=== PATIENT | male | born 1960 | race American Indian/Alaskan Native ===

== ENCOUNTER 2021-03-09 06:14 | Inpatient (IN) | payer SELFPAY ==
[2021-03-09] MEDS ORDERED: SODIUM CHLORIDE 0.9% 1000 ML 1,000 ML IV ONE (06:26)
--- NOTE | 2021-03-09 06:31 | Emergency Department Report ---
ED Shortness of Breath HPI - General Chief Complaint: Dyspnea/Respdistress Stated Complaint: SOB Time Seen by Provider: 03/09/21 06:25 Source: EMS Mode of arrival: Stretcher Limitations: No Limitations - History of Present Illness Initial Comments: Patient presents by EMS secondary to shortness of breath. Patient was traveling. He started having shortness of breath yesterday while in [place]. He was flying from [facility] to [place] and then subsequently here. He decided to come on here and boarded the plane in [place]. He came here and was having trouble breathing. He states that he is having trouble breathing because he did not have an informed close. He states that that this started in [place]. He just cannot catch his breath. Has no chest pain. There is no cough or fever. Has had no vomiting or diarrhea. EMS placed him in an N95 mask. Patient states he is never had trouble breathing before. He has had no pain or swelling in the legs. Again, he has no chest pain. - Related Data Allergies Allergy/AdvReac Type Severity Reaction Status Date / Time No Known Allergies Allergy Unverified 03/09/21 07:34 ED Review of Systems ROS: Stated complaint: SOB Other details as noted in HPI Comment: All other systems reviewed and negative Constitutional: denies: fever Eyes: denies: vision change ENT: denies: throat pain Respiratory: see HPI. denies: cough Cardiovascular: denies: chest pain Endocrine: denies: unexplained weight loss Gastrointestinal: denies: abdominal pain Genitourinary: denies: dysuria Musculoskeletal: denies: back pain Skin: denies: rash Neurological: denies: headache Hematological/Lymphatic: denies: easy bruising ED Past Medical Hx - Past Medical History Previous Medical History?: No - Family History Family history: no significant - Social History Smoking Status: Never Smoker ED Physical Exam - General Limitations: No Limitations, Other (Pulse ox noted and normal) General appearance: alert, in no apparent distress - Head Head exam: Present: atraumatic, normocephalic, normal inspection - Eye Eye exam: Present: normal appearance, EOMI. Absent: scleral icterus - ENT ENT exam: Present: mucous membranes dry, normal external ear exam - Neck Neck exam: Present: normal inspection. Absent: meningismus - Respiratory Respiratory exam: Present: normal lung sounds bilaterally. Absent: respiratory distress - Cardiovascular Cardiovascular Exam: Present: normal rhythm, tachycardia - GI/Abdominal GI/Abdominal exam: Present: soft. Absent: distended, tenderness - Extremities Exam Extremities exam: Present: normal capillary refill. Absent: pedal edema, calf tenderness - Back Exam Back exam: Absent: CVA tenderness (R), CVA tenderness (L) - Neurological Exam Neurological exam: Present: alert, oriented X3, CN II-XII intact, normal gait. Absent: motor sensory deficit - Psychiatric Psychiatric exam: Present: normal affect, normal mood - Skin Skin exam: Present: warm, dry ED Course Vital Signs 03/09/21 03/09/21 03/09/21 06:42 06:43 07:30 Temperature 99.7 F H 102.1 F H Pulse Rate 112 H 110 H Respiratory 29 H 15 Rate Blood Pressure 137/97 150/91 [Left] O2 Sat by Pulse 96 96 97 Oximetry - Reevaluation(s) Reevaluation #1: 03/09/21 06:31 IV and labs ordered. Old records noted. Reevaluation #2: 03/09/21 07:13 EKG is noted. There is no old EKG for comparison. Reevaluation #3: 03/09/21 08:42 CT was noted. Case was discussed with the hospitalist who agrees to admit. It was at this time that the temperature was noted. Coronavirus swab will be ordered. ED Medical Decision Making - Lab Data Result diagrams: 03/09/21 06:49 03/09/21 06:49 Rhythm strip: Sinus tachycardia without ectopy. Monitor observe 10 seconds. - EKG Data -: EKG Interpreted by Me - EKG Data When compared to previous EKG there are: previous EKG unavailable 03/09/21 07:15 0652-EKG shows sinus tachycardia 107. QRS is normal at 79. QT corrected is normal at 1-29. Patient has T wave inversions in 1 and aVL. There is T wave flattening in 3 and aVF. Patient has biphasic T waves in V5 and V6. These are concerning for ischemia. There is no old EKG for comparison. There is no ST elevation to suggest STEMI. - Radiology Data Radiology results: report reviewed - Medical Decision Making Patient presents with shortness of breath in the setting of international travel. There was no CT evidence of pneumonia or pneumothorax. He did not have CT evidence of aortic dissection or pulmonary embolism. He does have an abnorm al EKG. Patient now has a fever. Coronavirus swab was sent. Whether this is an angina equivalent is not known. We do not have an old EKG for comparison. Regardless, we will proceed with admission and observation. Critical Care Time: No Critical care attestation.: If time is entered above; I have spent that time in minutes in the direct care o f this critically ill patient, excluding procedure time. ED Disposition Clinical Impression: Shortness of breath, Abnormal EKG Disposition: ADMITTED INPATIENT Is pt being admited?: Yes Condition: Stable
[2021-03-09 07:12] LABS: Hematocrit 42.5 % (35.5-45.6); Hemoglobin 13.3 gm/dl (11.8-15.2); Mean Corpuscular HGB Conc 31 % (32-34); Mean Corpuscular Volume 80 fl (84-94); Platelet Count 142 K/mm3 (140-440); Red Blood Count 5.32 M/mm3 (3.65-5.03); Red Cell Distribution Width 15.2 % (13.2-15.2)
[2021-03-09 07:34] LABS: BUN/Creatinine Ratio 15; Blood Urea Nitrogen 16 mg/dL (9-20); Calcium 8.8 mg/dL (8.4-10.2); Hemolysis Index 4
[2021-03-09] MEDS ORDERED: ACETAMINOPHEN 500 MG TAB PO ONE (07:34)
--- NOTE | 2021-03-09 08:26 | Cat Scan Report ---
CTA CHEST WITH CONTRAST INDICATION / CLINICAL INFORMATION: dyspnea w/travel, r/o pe. TECHNIQUE: Axial CT images were obtained through the chest after injection of 85 cc Omnipaque 350 IV contrast. 3 plane MIP and/or 3D reconstructions were produced. All CT scans at this location are perf ormed using CT dose reduction for ALARA by means of automated exposure control. COMPARISON: None available. FINDINGS: PULMONARY ARTERIES: No pulmonary emboli. The main pulmonary artery is mildly dilated at 3.3 cm. THORACIC AORTA: No significant abnormality. HEART: No significant abnormality. CORONARY ARTERY CALCIFICATION: None. MEDIASTINUM / TONJA: No significant abnormality. PLEURA: No pleural effusion. No pneumothorax. LUNGS: No acute air space or interstitial disease. ADDITIONAL FINDINGS: None. UPPER ABDOMEN: Small hiatal hernia. There are multiple small bilateral adrenal nodules, largest measu ring approximately 1.8 cm in the left adrenal gland with Hounsfield unit of 01. Mild hepatic steatosi s. SKELETAL STRUCTURES: No significant osseous abnormality. IMPRESSION: 1. No CT evidence for pulmonary embolism. 2. The main pulmonary artery is mildly dilated at 3.3 cm, which can be seen with pulmonary artery hyp ertension. 2. Bilateral small adrenal nodules which favor adrenal adenomas. 4. Additional incidental findings as above. Signer Name: Dante Gramajo MD Signed: 03/09/2021 8:21 AM Workstation Name: [id number]
--- NOTE | 2021-03-09 09:27 | History and Physical Report ---
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 He denies any past medical history but does not see doctors. He has been generally healthy. He visited his family in [facility], spent 2 weeks and flew back to [place] on 03/07/2021 changing a flight in [place]. Patient started feeling very cold while he was at [place] report and he continued to feel unwell after landing in [place] mainly feeling cold, malaise and anorexia. Reportedly told EMS as well as a ER physician that he was having difficulty breathing however when I questioned this, he denied it. No vomiting or diarrhea. No he adache, sore throat, cough, chest pain, abdominal pain or joint aches. No lightheadedness or syncopal episodes. No skin rashes. No hematochezia or melena or hematuria. In ED, patient noted to be spiking fever, max 103.1, the only abnormal finding in the work-up. BP, respirations and heart rate stable. WBC 6.2, platelets 142, D-dimer 855, ABG 7.43, 37, 74 on room air. CMP unremarkable. Proc alcitonin 2.9, LDH 229, CRP 9.3. UA unremarkable. PCR test for Covid negative. CTA showed no pulmonary embolus or pneumonia. Small adrenal nodules consistent with adenoma. EKG showed sinus tach, 107, T wave inversions in 1 and aVL. T wave flattening in 3 and aVF and biphasic T waves in V5 and V6. Troponin normal. Patient received 2 doses of COVID-19 vaccine about a month ago or so. Patient denies feeling ill or exposure to sick patients while in [facility]. Patient is being admitted for further evaluation after febrile illness. Patient remains on room air without respiratory distress. Review of systems: 13 systems reviewed and the pertinent findings are mentioned in HPI. Past medical history: Patient denies any Social history: Works as a retail security professional. Lives with a person who is not ill. Denies using tobacco products or illicit drugs. Rarely drinks alcohol. Family history: Noncontributory Current meds: None Medications and Allergies Allergies Allergy/AdvReac Type Severity Reaction Status Date / Time No Known Allergies Allergy Unverified 03/09/21 07:34 Exam - Constitutional Vitals: Temp Pulse Resp BP Pulse Ox 103.1 F H 112 H 23 143/86 97 03/09/21 08:43 03/09/21 08:43 03/09/21 08:43 03/09/21 08:43 03/09/21 08:43 General appearance: Present: no acute distress, well-nourished, other (Alert and oriented) - EENT Eyes: Present: PERRL, EOM intact. Absent: scleral icterus ENT: clear oral mucosa, no oropharyngeal erythema - Neck Neck: Present: supple - Respiratory Respiratory effort: normal Respiratory: bilateral: CTA - Cardiovascular Rhythm: regular - Extremities Extremities: No edema - Abdominal General gastrointestinal: Present: soft, non-tender, non-distended, normal bowel sounds Male genitourinary: Present: deferred - Integumentary Integumentary: Absent: jaundice, rash - Musculoskeletal Musculoskeletal: strength equal bilaterally - Psychiatric Psychiatric: appropriate mood/affect - Neurologic Neurologic: no focal deficits, moves all extremities HEART Score - HEART Score Troponin: Troponin T < 0.010 ng/mL (0.00-0.029) 03/09/21 06:49 Results - Labs CBC & Chem 7: 03/09/21 06:49 03/09/21 06:49 Labs: Laboratory Last Values WBC 6.2 K/mm3 (4.5-11.0) 03/09/21 06:49 RBC 5.32 M/mm3 (3.65-5.03) H 03/09/21 06:49 Hgb 13.3 gm/dl (11.8-15.2) 03/09/21 06:49 Hct 42.5 % (35.5-45.6) 03/09/21 06:49 MCV 80 fl (84-94) L 03/09/21 06:49 MCH 25 pg (28-32) L 03/09/21 06:49 MCHC 31 % (32-34) L 03/09/21 06:49 RDW 15.2 % (13.2-15.2) 03/09/21 06:49 Plt Count 142 K/mm3 (140-440) 03/09/21 06:49 Sodium 139 mmol/L (137-145) 03/09/21 06:49 Potassium 3.6 mmol/L (3.6-5.0) 03/09/21 06:49 Chloride 100.2 mmol/L (98-107) 03/09/21 06:49 Carbon Dioxide 23 mmol/L (22-30) 03/09/21 06:49 Anion Gap 19 mmol/L 03/09/21 06:49 BUN 16 mg/dL (9-20) 03/09/21 06:49 Creatinine 1.1 mg/dL (0.8-1.3) 03/09/21 06:49 Estimated GFR > 60 ml/min 03/09/21 06:49 BUN/Creatinine Ratio 15 % 03/09/21 06:49 Glucose 145 mg/dL (75-100) H 03/09/21 06:49 Calcium 8.8 mg/dL (8.4-10.2) 03/09/21 06:49 Troponin T < 0.010 ng/mL (0.00-0.029) 03/09/21 06:49 Assessment and Plan Assessment and plan: Assessment: Acute febrile illness with malaise and anorexia since 2 days, T-max 103.1, likely viral etiology returning after a 2-week trip to [facility] received COVID-19 vaccine x2 doses about a month ago PCR test negative for COVID-19 in ED WBC 6.2 and platelets 192, UA unremarkable D-dimer 850 high, CTA negative for PE and pneumonia. Procalcitonin 2.9, LDH 229, CRP 9.3 chemistry and LFTs unremarkable no respiratory distress, remains on room air ABG 7.43, 37, 74, on room air Incidental small adrenal nodules Abnormal T wave wave changes on EKG, no chest pain, troponin normal Denies past medical history, generally healthy but does not see doctors Plan: Blood cultures performed will hold antibiotic therapy for now ID consulted supportive measures for now DVT prophylaxis: SCDs since platelet count is borderline Discussed with the patient and his sister in detail Advance Directives: Yes VTE prophylaxis?: Mechanical Plan of care discussed with patient/family: Yes
[2021-03-09 10:20] LABS: ABG Base Excess 0.5 mmol/L (-2.0-3.0); ABG HCO3 24.4 mmol/L (20.0-26.0); ABG Methemoglobin 0.6 % (0.0-1.5); ABG Oxygen Saturation 96.2 % (95.0-99.0); ABG PCO2 37.2 mm Hg; ABG PH 7.436 pH Units (7.350-7.450); ABG PO2 74.6 mm Hg (80.0-90.0)
[2021-03-09 10:20] LABS: Bilirubin,Direct 0.4 mg/dL (0-0.2); C-Reactive Protein 9.3 mg/dL (0.00-1.30)
[2021-03-09 15:13] LABS: Bilirubin,Urine NEG (Negative); Blood,Urine SM (Negative); Color,Urine Yellow (Yellow); Mucus,Urine FEW /HPF; Urobilinogen,Urine < 2.0 mg/dL (<2.0)
[2021-03-09] MEDS ORDERED: ACETAMINOPHEN 325 MG TAB PO PRN (21:44)
[2021-03-09] MEDS ORDERED: ONDANSETRON 4 MG ODT TAB PO PRN (21:45)
[2021-03-10] MEDS ORDERED: hydrALAZINE 20 MG/1 ML INJ IV ONE (06:13)
[2021-03-10 06:30] LABS: Hematocrit 41.2 % (35.5-45.6); Mean Corpuscular HGB Conc 32 % (32-34); Mean Corpuscular Volume 82 fl (84-94); Platelet Count 139 K/mm3 (140-440); Red Blood Count 5.05 M/mm3 (3.65-5.03); Red Cell Distribution Width 15.6 % (13.2-15.2)
[2021-03-10 06:41] LABS: Alanine Aminotransferase 21 units/L (7-56); BUN/Creatinine Ratio 14; Blood Urea Nitrogen 13 mg/dL (9-20); Calcium 8.9 mg/dL (8.4-10.2); Hemolysis Index 3
[2021-03-10] MEDS ORDERED: ACETAMINOPHEN 500 MG TAB PO ONE (07:38)
--- NOTE | 2021-03-10 09:39 | Electrocardiograph Report ---
[facility] Test Date: 2021-03-09 Test Time: 06:52:56 Pat Name: ROSIE BETTENCOURT Department: Room: A486 Gender: M Speech Correction Assistant: GRISELDA : 1960 Requested By: SEDRICK WATSON Order Number: [id number] Reading MD: Jaun Sotelo Measurements Intervals [place] Rate: 107 P: 57 AL: 165 QRS: 57 QRSD: 79 T: 183 QT: 321 QTc: 429 Interpretive Statements Sinus tachycardia Abnormal T, consider ischemia, lateral leads No previous ECG available for comparison Electronically Signed On 03-10-2021 9:38:39 EST by Jaun Sotelo
--- NOTE | 2021-03-10 09:43 | Electrocardiograph Report ---
[facility] Test Date: 2021-03-10 Test Time: 07:48:14 Pat Name: ROSIE BETTENCOURT Department: Room: A486 1 Gender: M Researcher: MAXWELL : 1960 Requested By: MALGORZATA COSTA Order Number: [id number] Reading MD: Jaun Sotelo Measurements Intervals [place] Rate: 114 P: 58 IA: 167 QRS: 62 QRSD: 75 T: 243 QT: 313 QTc: 431 Interpretive Statements Sinus tachycardia Probable left atrial enlargement Probable left ventricular hypertrophy Borderline T abnormalities, diffuse leads Compared to ECG 03/09/2021 06:52:56 Possible ischemia no longer present T-wave abnormality still present Electronically Signed On 03-10-2021 9:42:58 EST by Jaun Sotelo
[2021-03-10 10:14] LABS: Total Cells Counted 100
[2021-03-10 10:16] LABS: Platelet Estimate Consistent w Auto; Target Cells Few
[2021-03-10] MEDS: ACETAMINOPHEN 325 MG TAB PO PRN ×2 (18:28→21:58)
--- NOTE | 2021-03-10 18:57 | Progress Note ---
Assessment and Plan Assessment and plan: Assessment: Acute febrile illness with malaise and anorexia since 2 days, T-max 103.1 returning after a 2-week trip to [facility] consider viral, malaria and other etiologies prevalent in [place] received COVID-19 vaccine x2 doses about a month ago PCR test negative for COVID-19 in ED WBC 6.2 and platelets 192, UA unremarkable D-dimer 850 high, CTA negative for PE and pneumonia. Procalcitonin 2.9, LDH 229, CRP 9.3 chemistry and LFTs unremarkable no respiratory distress, remains on room air ABG 7.43, 37, 74, on room air Incidental small adrenal nodules Abnormal T wave wave changes on EKG, no chest pain, troponin normal Denies past medical history, generally healthy but does not see doctors Plan: T-max 100.1, fever trending down, temp to less than 100 degrees Repeat CBC and CMP today unremarkable However, CRP rising 9.318.4 Blood cultures performed will hold antibiotic therapy for now ID consulted Ordered peripheral smear for malaria supportive measures for now DVT prophylaxis: SCDs since platelet count is borderline Discussed with the patient and nursing staff Discussed with ID service. History Interval history: T-max 103.1, fever trending down, temp today less than 100. Patient feels better continues to have malaise and anorexia. Denies dyspnea, cough, sore throat, chest pain, abdominal pain, dysuria, or diarrhea. Remains on room air. Hospitalist Physical - Constitutional Vitals: Temp Pulse Resp BP Pulse Ox 98.5 F 76 18 156/106 98 03/10/21 05:44 03/10/21 05:44 03/10/21 05:44 03/10/21 05:44 03/10/21 05:44 General appearance: Present: no acute distress, well-nourished, other (Alert and oriented) - EENT Eyes: Present: PERRL. Absent: scleral icterus ENT: clear oral mucosa, dentition normal, no oropharyngeal erythema - Neck Neck: Present: supple. Absent: masses or JVD - Respiratory Respiratory effort: normal Respiratory: bilateral: CTA - Cardiovascular Rhythm: regular - Extremities Extremities: No edema - Abdominal General gastrointestinal: soft, non-tender, non-distended, normal bowel sounds - Integumentary Integumentary: Absent: jaundice, rash - Psychiatric Psychiatric: appropriate mood/affect - Neurologic Neurologic: no focal deficits, moves all extremities HEART Score - HEART Score Troponin: Troponin T < 0.010 ng/mL (0.00-0.029) 03/10/21 05:15 Results - Labs CBC & Chem 7: 03/10/21 05:15 03/10/21 05:15 Labs: Laboratory Last Values WBC 3.5 K/mm3 (4.5-11.0) L 03/10/21 05:15 RBC 5.05 M/mm3 (3.65-5.03) H 03/10/21 05:15 Hgb 13.0 gm/dl (11.8-15.2) 03/10/21 05:15 Hct 41.2 % (35.5-45.6) 03/10/21 05:15 MCV 82 fl (84-94) L 03/10/21 05:15 MCH 26 pg (28-32) L 03/10/21 05:15 MCHC 32 % (32-34) 03/10/21 05:15 RDW 15.6 % (13.2-15.2) H 03/10/21 05:15 Plt Count 139 K/mm3 (140-440) L 03/10/21 05:15 [place] % (Auto) Event Marketing Intern 03/10/21 05:15 Add Manual Diff Complete 03/10/21 05:15 Total Counted 100 03/10/21 05:15 Seg Neuts % (Manual) 63.0 % (40.0-70.0) 03/10/21 05:15 Lymphocytes % (Manual) 16.0 % (13.4-35.0) 03/10/21 05:15 Reactive Lymphs % (Man) 7.0 % 03/10/21 05:15 Monocytes % (Manual) 11.0 % (0.0-7.3) H 03/10/21 05:15 Eosinophils % (Manual) 2.0 % (0.0-4.3) 03/10/21 05:15 Basophils % (Manual) 1.0 % (0.0-1.8) 03/10/21 05:15 Nucleated RBC % Not Reportable 03/10/21 05:15 Seg Neutrophils # Man 2.2 K/mm3 (1.8-7.7) 03/10/21 05:15 Band Neutrophils # 0.0 K/mm3 03/10/21 05:15 Lymphocytes # (Manual) 0.6 K/mm3 (1.2-5.4) L 03/10/21 05:15 Abs React Lymphs (Man) 0.2 K/mm3 03/10/21 05:15 Monocytes # (Manual) 0.4 K/mm3 (0.0-0.8) 03/10/21 05:15 Eosinophils # (Manual) 0.1 K/mm3 (0.0-0.4) 03/10/21 05:15 Basophils # (Manual) 0.0 K/mm3 (0.0-0.1) 03/10/21 05:15 Metamyelocytes # 0.0 K/mm3 03/10/21 05:15 Myelocytes # 0.0 K/mm3 03/10/21 05:15 Promyelocytes # 0.0 K/mm3 03/10/21 05:15 Blast Cells # 0.0 K/mm3 03/10/21 05:15 WBC Morphology Not Reportable 03/10/21 05:15 Hypersegmented Neuts Not Reportable 03/10/21 05:15 Hyposegmented Neuts Not Reportable 03/10/21 05:15 Hypogranular Neuts Not Reportable 03/10/21 05:15 Smudge Cells Not Reportable 03/10/21 05:15 Toxic Granulation Not Reportable 03/10/21 05:15 Toxic Vacuolation Not Reportable 03/10/21 05:15 Dohle Bodies Not Reportable 03/10/21 05:15 Pelger-Huet Anomaly Not Reportable 03/10/21 05:15 Felix Rods Not Reportable 03/10/21 05:15 Platelet Estimate Consistent w auto 03/10/21 05:15 Clumped Platelets Not Reportable 03/10/21 05:15 Plt Clumps, EDTA Not Reportable 03/10/21 05:15 Large Platelets Not Reportable 03/10/21 05:15 Giant Platelets Not Reportable 03/10/21 05:15 Platelet Satelliting Not Reportable 03/10/21 05:15 Plt Morphology Comment Not Reportable 03/10/21 05:15 RBC Morphology Not Reportable 03/10/21 05:15 Dimorphic RBCs Not Reportable 03/10/21 05:15 Polychromasia Not Reportable 03/10/21 05:15 Hypochromasia Not Reportable 03/10/21 05:15 Poikilocytosis Not Reportable 03/10/21 05:15 Anisocytosis Not Reportable 03/10/21 05:15 Microcytosis Not Reportable 03/10/21 05:15 Macrocytosis Not Reportable 03/10/21 05:15 Spherocytes Not Reportable 03/10/21 05:15 Pappenheimer Bodies Not Reportable 03/10/21 05:15 Sickle Cells Not Reportable 03/10/21 05:15 Target Cells Few 03/10/21 05:15 Tear Drop Cells Not Reportable 03/10/21 05:15 Ovalocytes Not Reportable 03/10/21 05:15 Helmet Cells Not Reportable 03/10/21 05:15 [place]-Whitfield Bodies Not Reportable 03/10/21 05:15 [place] Rings Not Reportable 03/10/21 05:15 Tyler Cells Not Reportable 03/10/21 05:15 Bite Cells Not Reportable 03/10/21 05:15 Crenated Cell Not Reportable 03/10/21 05:15 Elliptocytes Not Reportable 03/10/21 05:15 Acanthocytes (Spur) Not Reportable 03/10/21 05:15 Rouleaux Not Reportable 03/10/21 05:15 Hemoglobin C Crystals Not Reportable 03/10/21 05:15 Schistocytes Not Reportable 03/10/21 05:15 Malaria parasites Not Reportable 03/10/21 05:15 Julius Bodies Not Reportable 03/10/21 05:15 Hem Pathologist Commnt No 03/10/21 05:15 D-Dimer 855.54 ng/mlDDU (0-234) H 03/09/21 09:42 ABG pH 7.436 pH Units (7.350-7.450) 03/09/21 10:15 ABG pCO2 37.2 mm Hg 03/09/21 10:15 ABG pO2 74.6 mm Hg (80.0-90.0) L 03/09/21 10:15 ABG HCO3 24.4 mmol/L (20.0-26.0) 03/09/21 10:15 ABG O2 Saturation 96.2 % (95.0-99.0) 03/09/21 10:15 ABG O2 Content 17.2 (0.0-44) 03/09/21 10:15 ABG Base Excess 0.5 mmol/L (-2.0-3.0) 03/09/21 10:15 ABG Hemoglobin 13.1 gm/dl (14.0-18.0) L 03/09/21 10:15 ABG Carboxyhemoglobin 2.2 % (0.0-5.0) 03/09/21 10:15 ABG Methemoglobin 0.6 % (0.0-1.5) 03/09/21 10:15 Oxyhemoglobin 93.5 % (95.0-99.0) L 03/09/21 10:15 FiO2 21 % 03/09/21 10:15 Sodium 140 mmol/L (137-145) 03/10/21 05:15 Potassium 3.6 mmol/L (3.6-5.0) 03/10/21 05:15 Chloride 103.8 mmol/L (98-107) 03/10/21 05:15 Carbon Dioxide 24 mmol/L (22-30) 03/10/21 05:15 Anion Gap 16 mmol/L 03/10/21 05:15 BUN 13 mg/dL (9-20) 03/10/21 05:15 Creatinine 0.9 mg/dL (0.8-1.3) 03/10/21 05:15 Estimated GFR > 60 ml/min 03/10/21 05:15 BUN/Creatinine Ratio 14 % 03/10/21 05:15 Glucose 96 mg/dL (75-100) 03/10/21 05:15 Calcium 8.9 mg/dL (8.4-10.2) 03/10/21 05:15 Ferritin 409.4 ng/mL (30.0-300.0) H 03/09/21 09:42 Total Bilirubin 1.00 mg/dL (0.1-1.2) 03/10/21 05:15 Direct Bilirubin 0.4 mg/dL (0-0.2) H 03/09/21 09:42 Indirect Bilirubin 1.1 mg/dL 03/09/21 09:42 AST 29 units/L (5-40) 03/10/21 05:15 ALT 21 units/L (7-56) 03/10/21 05:15 Alkaline Phosphatase 72 units/L (35-129) 03/10/21 05:15 Lactate Dehydrogenase 229 units/L (91-180) H 03/09/21 09:42 Troponin T < 0.010 ng/mL (0.00-0.029) 03/10/21 05:15 C-Reactive Protein 18.40 mg/dL (0.00-1.30) H 03/10/21 05:15 Total Protein 7.1 g/dL (6.3-8.2) 03/10/21 05:15 Albumin 4.0 g/dL (3.9-5) 03/10/21 05:15 Albumin/Globulin Ratio 1.3 % 03/10/21 05:15 Procalcitonin 2.99 ng/mL (<0.15) 03/09/21 09:42 Urine Color Yellow (Yellow) 03/09/21 12:24 Urine Turbidity Clear (Clear) 03/09/21 12:24 Urine pH 6.0 (5.0-7.0) 03/09/21 12:24 Ur Specific [place] 1.049 (1.003-1.030) H 03/09/21 12:24 Urine Protein 30 mg/dl mg/dL (Negative) 03/09/21 12:24 Urine Glucose (UA) Neg mg/dL (Negative) 03/09/21 12:24 Urine Ketones Neg mg/dL (Negative) 03/09/21 12:24 Urine Blood Sm (Negative) 03/09/21 12:24 Urine Nitrite Neg (Negative) 03/09/21 12:24 Urine Bilirubin Neg (Negative) 03/09/21 12:24 Urine Urobilinogen < 2.0 mg/dL (<2.0) 03/09/21 12:24 Ur Leukocyte Esterase Neg (Negative) 03/09/21 12:24 Urine WBC (Auto) 1.0 /HPF (0.0-6.0) 03/09/21 12:24 Urine RBC (Auto) 6.0 /HPF (0.0-6.0) 03/09/21 12:24 Urine Mucus Few /HPF 03/09/21 12:24 Coronavirus (PCR) Negative (Negative) 03/09/21 08:44 Microbiology: Microbiology 03/09/21 09:42 Peripheral/Venous Blood Culture - Preliminary NO GROWTH AFTER 24 HOURS 03/09/21 09:42 Peripheral/Venous Blood Culture - Preliminary NO GROWTH AFTER 24 HOURS Moss/IV: Voiding Method Toilet Active Medications - Current Medications Current Medications: Generic Name Dose Route Start Last Admin Trade Name Freq PRN Reason Stop Dose Admin Acetaminophen 650 mg 03/09/21 21:44 03/10/21 18:28 Acetaminophen 325 Mg Tab PO 650 mg Q6H PRN Administration Pain, Mild (1-3), Fever > 101 Ondansetron HCl 4 mg 03/09/21 21:45 Ondansetron 4 Mg Odt Tab PO Q8H PRN Nausea And Vomiting
[2021-03-10] MEDS: D5W/0.45% NACL/KCL 10 MEQ 10 MEQ/1,000 ML BAG IV SCH (21:55)
[2021-03-11] MEDS: ACETAMINOPHEN 325 MG TAB PO PRN (05:45)
[2021-03-11 06:22] LABS: Basophils % (Auto) 0.2 % (0.0-1.8); Eosinophils % (Auto) 0.2 % (0.0-4.3); Lymphocytes # (Auto) 0.5 K/mm3 (1.2-5.4); Lymphocytes % (Auto) 8.9 % (13.4-35.0); Mean Corpuscular HGB Conc 31 % (32-34); Mean Corpuscular Volume 81 fl (84-94); Monocytes # (Auto) 0.2 K/mm3 (0.0-0.8); Monocytes % (Auto) 2.8 % (0.0-7.3); Red Blood Count 5.56 M/mm3 (3.65-5.03); Red Cell Distribution Width 15.8 % (13.2-15.2)
[2021-03-11 06:23] LABS: Hematocrit 44.7 % (35.5-45.6); Hemoglobin 13.9 gm/dl (11.8-15.2); Platelet Count 70 K/mm3 (140-440)
[2021-03-11 07:01] LABS: Alanine Aminotransferase 21 units/L (7-56); BUN/Creatinine Ratio 14; Blood Urea Nitrogen 13 mg/dL (9-20); Calcium 8.9 mg/dL (8.4-10.2); Hemolysis Index 6
[2021-03-11] MEDS: D5W/0.45% NACL/KCL 10 MEQ 10 MEQ/1,000 ML BAG IV SCH ×2 (12:05→21:46)
--- NOTE | 2021-03-11 12:37 | Consultation ---
History of Present Illness - Reason for Consult Consult date: 03/11/21 - History of Present Illness [id number] man no known past medical history of after having fevers and chills. Of note the patient recently returned from visiting family in [place] where he spent 2 weeks. He also Myogesic malaise, anorexia. He had also not any symptoms such as shortness of breath. Febrile on presentation, test largely negative at this point. He also is vaccinated against Covid. He had no sick exposures while in [place]. Recurrent fevers, tachycardia. White count 5.5. Blood culture no so far. Imaging personally viewed: Chest CTA: No evidence of pulmonary embolism.. Possible pulmonary artery hypertension. Otherwise no acute findings. Review of Systems: Bold if positive, otherwise negative General: fevers, chills, rigors HEENT: visual disturbance, diplopia, eye pain Respiratory: cough, sputum, hemoptysis, shortness of breath Cardiovascular: chest pain, syncope Gastrointestinal: nausea, vomiting, diarrhea, abdominal pain Genitourinary: dysuria, hematuria, flank pain Musculoskeletal: neck pain, back pain, joint pain, edema Neurologic: headaches, seizures Hematologic: easy bruising or bleeding Endocrine: night sweats, acute weight loss Skin: rash, jaundice, redness Psychiatric: suicidal, homicidal ideation Medications and Allergies Allergies Allergy/AdvReac Type Severity Reaction Status Date / Time No Known Allergies Allergy Unverified 03/09/21 07:34 Active Meds: Active Medications Acetaminophen (Acetaminophen 325 Mg Tab) 650 mg PO Q6H PRN PRN Reason: Pain, Mild (1-3), Fever > 101 Last Admin: 03/11/21 05:45 Dose: 650 mg Documented by: Potassium Chloride/Dextrose/Sod Cl (D5w/0.45% Nacl/Kcl 10 Meq) 10 meq in 1,000 mls @ 100 mls/hr IV DIRECT LIZANDRO Last Admin: 03/10/21 21:55 Dose: 100 mls/hr Documented by: Ondansetron HCl (Ondansetron 4 Mg Odt Tab) 4 mg PO Q8H PRN PRN Reason: Nausea And Vomiting Last Admin: 03/11/21 05:45 Dose: 4 mg Documented by: Physical Examination - Physical Exam Narrative exam: Physical Exam: Constitutional: Alert, cooperative. No acute distress Head, Ears, Nose: Normocephalic, atraumatic. External ears, nose normal Eyes: Conjunctivae/corneas clear. No icterus. No ptosis. Neck: Supple, no meningeal signs Oral: dentition fair, no thrush Cardiovascular: S1, S2 normal. Respiratory: Good air entry, clear to auscultation bilaterally GI: Soft, non-tender; bowel sounds normal. No peritoneal signs. Musculoskeletal: No pedal edema, no cyanosis. Skin: No rash or abscess Hem/Lymphatic: No palpable cervical or supraclavicular nodes. No lymphangitis Psych: Mood ok. Affect normal Neurological: Awake, alert, oriented. No gross abnormality - Constitutional Vitals: Vital Signs Temp Pulse Resp BP Pulse Ox 98.3 F 121 H 18 162/79 98 03/11/21 08:59 03/11/21 08:59 03/11/21 10:00 03/11/21 08:59 03/11/21 10:00 Temperature -Last 24 Hours Temperature 98.3 F Temperature 100 F Temperature 97.4 F Temperature 98.9 F Temperature 100.6 F Temperature 100.5 F Results - Labs CBC & Chem 7: 03/11/21 05:20 03/11/21 05:20 Labs: Abnormal lab results 03/11/21 03/11/21 Range/Units 05:20 05:20 RBC 5.56 H (3.65-5.03) M/mm3 MCV 81 L (84-94) fl MCH 25 L (28-32) pg MCHC 31 L (32-34) % RDW 15.8 H (13.2-15.2) % Plt Count 70 L (140-440) K/mm3 Lymph % (Auto) 8.9 L (13.4-35.0) % Lymph # (Auto) 0.5 L (1.2-5.4) K/mm3 Seg Neutrophils % 87.9 H (40.0-70.0) % Glucose 149 H (75-100) mg/dL Total Bilirubin 1.60 H (0.1-1.2) mg/dL C-Reactive Protein 15.10 H (0.00-1.30) mg/dL Assessment and Plan Cultures: Blood culture no growth so far Malaria: positive A/P: 61 yo M no known PMHx presented to hospital with sepsis secondary to malaria #Acute sepsis: with fevers and leukocytosis. Secondary to malaria #Malaria: discussed with lab, testing positive. Will be sent out for speciation and quantification. Recs: -Start malarone, plan 3 days. -Follow up finalization of malaria testing; speciation and quantification Thank you for the consult, we will continue to follow. Dilia Humphries MD [facility] ([facility]) O: [phone] F: [phone]
[2021-03-11] MEDS: ATOVAQUONE/PROGUANIL TAB PO SCH (16:10)
--- NOTE | 2021-03-11 23:23 | Progress Note ---
Assessment and Plan Assessment and plan: Assessment: Acute febrile illness with malaise and anorexia since 2 days, T-max 103.1 at the time of admission returning after a 2-week trip to [facility] consider viral, malaria and other etiologies prevalent in [place]. received COVID-19 vaccine x2 doses about a month ago PCR test negative for COVID-19 in ED WBC 6.2 and platelets 192, UA unremarkable D-dimer 850 high, CTA negative for PE and pneumonia. Procalcitonin 2.9, LDH 229, CRP 9.3 chemistry and LFTs unremarkable no respiratory distress, remains on room air ABG 7.43, 37, 74, on room air Incidental small adrenal nodules Abnormal T wave wave changes on EKG, no chest pain, troponin normal Denies past medical history, generally healthy but does not see doctors Plan: Peripheral blood smear positive for malaria parasite and started on medical therapy today by ID. Further identification of malaria parasite is awaited. Platelet count dropped to 70 today without evidence of bleeding or ecchymosis. DVT prophylaxis: SCDs since platelet count dropping Discussed with the patient and nursing staff History Interval history: Patient is experiencing cyclical fever and chills though. Is now low-grade. Still has malaise. Appetite is poor. Peripheral blood smear positive for malaria parasite and started on therapy by ID today. Hospitalist Physical - Constitutional Vitals: Temp Pulse Resp BP Pulse Ox 97.7 F 76 18 129/89 98 03/11/21 21:41 03/11/21 21:07 03/11/21 21:57 03/11/21 21:07 03/11/21 21:57 General appearance: Present: no acute distress, well-nourished, other (Alert and oriented) - EENT Eyes: Present: PERRL. Absent: scleral icterus ENT: hearing intact, clear oral mucosa, no oropharyngeal erythema - Neck Neck: Present: supple - Respiratory Respiratory effort: normal Respiratory: bilateral: CTA - Cardiovascular Rhythm: regular - Extremities Extremities: No edema - Abdominal General gastrointestinal: soft, non-tender, non-distended, normal bowel sounds - Integumentary Integumentary: Absent: rash - Psychiatric Psychiatric: appropriate mood/affect - Neurologic Neurologic: no focal deficits, moves all extremities HEART Score - HEART Score Troponin: Troponin T < 0.010 ng/mL (0.00-0.029) 03/10/21 05:15 Results - Labs CBC & Chem 7: 03/11/21 05:20 03/11/21 05:20 Labs: Laboratory Last Values WBC 5.5 K/mm3 (4.5-11.0) 03/11/21 05:20 RBC 5.56 M/mm3 (3.65-5.03) H 03/11/21 05:20 Hgb 13.9 gm/dl (11.8-15.2) 03/11/21 05:20 Hct 44.7 % (35.5-45.6) 03/11/21 05:20 MCV 81 fl (84-94) L 03/11/21 05:20 MCH 25 pg (28-32) L 03/11/21 05:20 MCHC 31 % (32-34) L 03/11/21 05:20 RDW 15.8 % (13.2-15.2) H 03/11/21 05:20 Plt Count 70 K/mm3 (140-440) L 03/11/21 05:20 Lymph % (Auto) 8.9 % (13.4-35.0) L 03/11/21 05:20 [place] % (Auto) 2.8 % (0.0-7.3) 03/11/21 05:20 Eos % (Auto) 0.2 % (0.0-4.3) 03/11/21 05:20 Baso % (Auto) 0.2 % (0.0-1.8) 03/11/21 05:20 Lymph # (Auto) 0.5 K/mm3 (1.2-5.4) L 03/11/21 05:20 [place] # (Auto) 0.2 K/mm3 (0.0-0.8) 03/11/21 05:20 Eos # (Auto) 0.0 K/mm3 (0.0-0.4) 03/11/21 05:20 Baso # (Auto) 0.0 K/mm3 (0.0-0.1) 03/11/21 05:20 Add Manual Diff Complete 03/10/21 05:15 Total Counted 100 03/10/21 05:15 Seg Neutrophils % 87.9 % (40.0-70.0) H 03/11/21 05:20 Seg Neuts % (Manual) 63.0 % (40.0-70.0) 03/10/21 05:15 Lymphocytes % (Manual) 16.0 % (13.4-35.0) 03/10/21 05:15 Reactive Lymphs % (Man) 7.0 % 03/10/21 05:15 Monocytes % (Manual) 11.0 % (0.0-7.3) H 03/10/21 05:15 Eosinophils % (Manual) 2.0 % (0.0-4.3) 03/10/21 05:15 Basophils % (Manual) 1.0 % (0.0-1.8) 03/10/21 05:15 Nucleated RBC % Not Reportable 03/10/21 05:15 Seg Neutrophils # 4.9 K/mm3 (1.8-7.7) 03/11/21 05:20 Seg Neutrophils # Man 2.2 K/mm3 (1.8-7.7) 03/10/21 05:15 Band Neutrophils # 0.0 K/mm3 03/10/21 05:15 Lymphocytes # (Manual) 0.6 K/mm3 (1.2-5.4) L 03/10/21 05:15 Abs React Lymphs (Man) 0.2 K/mm3 03/10/21 05:15 Monocytes # (Manual) 0.4 K/mm3 (0.0-0.8) 03/10/21 05:15 Eosinophils # (Manual) 0.1 K/mm3 (0.0-0.4) 03/10/21 05:15 Basophils # (Manual) 0.0 K/mm3 (0.0-0.1) 03/10/21 05:15 Metamyelocytes # 0.0 K/mm3 03/10/21 05:15 Myelocytes # 0.0 K/mm3 03/10/21 05:15 Promyelocytes # 0.0 K/mm3 03/10/21 05:15 Blast Cells # 0.0 K/mm3 03/10/21 05:15 WBC Morphology Not Reportable 03/10/21 05:15 Hypersegmented Neuts Not Reportable 03/10/21 05:15 Hyposegmented Neuts Not Reportable 03/10/21 05:15 Hypogranular Neuts Not Reportable 03/10/21 05:15 Smudge Cells Not Reportable 03/10/21 05:15 Toxic Granulation Not Reportable 03/10/21 05:15 Toxic Vacuolation Not Reportable 03/10/21 05:15 Dohle Bodies Not Reportable 03/10/21 05:15 Pelger-Huet Anomaly Not Reportable 03/10/21 05:15 Felix Rods Not Reportable 03/10/21 05:15 Platelet Estimate Consistent w auto 03/10/21 05:15 Clumped Platelets Not Reportable 03/10/21 05:15 Plt Clumps, EDTA Not Reportable 03/10/21 05:15 Large Platelets Not Reportable 03/10/21 05:15 Giant Platelets Not Reportable 03/10/21 05:15 Platelet Satelliting Not Reportable 03/10/21 05:15 Plt Morphology Comment Not Reportable 03/10/21 05:15 RBC Morphology Not Reportable 03/10/21 05:15 Dimorphic RBCs Not Reportable 03/10/21 05:15 Polychromasia Not Reportable 03/10/21 05:15 Hypochromasia Not Reportable 03/10/21 05:15 Poikilocytosis Not Reportable 03/10/21 05:15 Anisocytosis Not Reportable 03/10/21 05:15 Microcytosis Not Reportable 03/10/21 05:15 Macrocytosis Not Reportable 03/10/21 05:15 Spherocytes Not Reportable 03/10/21 05:15 Pappenheimer Bodies Not Reportable 03/10/21 05:15 Sickle Cells Not Reportable 03/10/21 05:15 Target Cells Few 03/10/21 05:15 Tear Drop Cells Not Reportable 03/10/21 05:15 Ovalocytes Not Reportable 03/10/21 05:15 Helmet Cells Not Reportable 03/10/21 05:15 [place] Bodies Not Reportable 03/10/21 05:15 Peck Rings Not Reportable 03/10/21 05:15 [place] Cells Not Reportable 03/10/21 05:15 Bite Cells Not Reportable 03/10/21 05:15 Crenated Cell Not Reportable 03/10/21 05:15 Elliptocytes Not Reportable 03/10/21 05:15 Acanthocytes (Spur) Not Reportable 03/10/21 05:15 Rouleaux Not Reportable 03/10/21 05:15 Hemoglobin C Crystals Not Reportable 03/10/21 05:15 Schistocytes Not Reportable 03/10/21 05:15 Malaria parasites Not Reportable 03/10/21 05:15 Julius Bodies Not Reportable 03/10/21 05:15 Hem Pathologist Commnt No 03/10/21 05:15 D-Dimer 855.54 ng/mlDDU (0-234) H 03/09/21 09:42 ABG pH 7.436 pH Units (7.350-7.450) 03/09/21 10:15 ABG pCO2 37.2 mm Hg 03/09/21 10:15 ABG pO2 74.6 mm Hg (80.0-90.0) L 03/09/21 10:15 ABG HCO3 24.4 mmol/L (20.0-26.0) 03/09/21 10:15 ABG O2 Saturation 96.2 % (95.0-99.0) 03/09/21 10:15 ABG O2 Content 17.2 (0.0-44) 03/09/21 10:15 ABG Base Excess 0.5 mmol/L (-2.0-3.0) 03/09/21 10:15 ABG Hemoglobin 13.1 gm/dl (14.0-18.0) L 03/09/21 10:15 ABG Carboxyhemoglobin 2.2 % (0.0-5.0) 03/09/21 10:15 ABG Methemoglobin 0.6 % (0.0-1.5) 03/09/21 10:15 Oxyhemoglobin 93.5 % (95.0-99.0) L 03/09/21 10:15 FiO2 21 % 03/09/21 10:15 Sodium 139 mmol/L (137-145) 03/11/21 05:20 Potassium 3.8 mmol/L (3.6-5.0) 03/11/21 05:20 Chloride 102.1 mmol/L (98-107) 03/11/21 05:20 Carbon Dioxide 22 mmol/L (22-30) 03/11/21 05:20 Anion Gap 19 mmol/L 03/11/21 05:20 BUN 13 mg/dL (9-20) 03/11/21 05:20 Creatinine 0.9 mg/dL (0.8-1.3) 03/11/21 05:20 Estimated GFR > 60 ml/min 03/11/21 05:20 BUN/Creatinine Ratio 14 % 03/11/21 05:20 Glucose 149 mg/dL (75-100) H 03/11/21 05:20 Calcium 8.9 mg/dL (8.4-10.2) 03/11/21 05:20 Ferritin 409.4 ng/mL (30.0-300.0) H 03/09/21 09:42 Total Bilirubin 1.60 mg/dL (0.1-1.2) H 03/11/21 05:20 Direct Bilirubin 0.4 mg/dL (0-0.2) H 03/09/21 09:42 Indirect Bilirubin 1.1 mg/dL 03/09/21 09:42 AST 27 units/L (5-40) 03/11/21 05:20 ALT 21 units/L (7-56) 03/11/21 05:20 Alkaline Phosphatase 73 units/L (35-129) 03/11/21 05:20 Lactate Dehydrogenase 229 units/L (91-180) H 03/09/21 09:42 Troponin T < 0.010 ng/mL (0.00-0.029) 03/10/21 05:15 C-Reactive Protein 15.10 mg/dL (0.00-1.30) H 03/11/21 05:20 Total Protein 7.1 g/dL (6.3-8.2) 03/11/21 05:20 Albumin 4.0 g/dL (3.9-5) 03/11/21 05:20 Albumin/Globulin Ratio 1.3 % 03/11/21 05:20 Procalcitonin 2.99 ng/mL (<0.15) 03/09/21 09:42 Urine Color Yellow (Yellow) 03/09/21 12:24 Urine Turbidity Clear (Clear) 03/09/21 12:24 Urine pH 6.0 (5.0-7.0) 03/09/21 12:24 Ur Specific [place] 1.049 (1.003-1.030) H 03/09/21 12:24 Urine Protein 30 mg/dl mg/dL (Negative) 03/09/21 12:24 Urine Glucose (UA) Neg mg/dL (Negative) 03/09/21 12:24 Urine Ketones Neg mg/dL (Negative) 03/09/21 12:24 Urine Blood Sm (Negative) 03/09/21 12:24 Urine Nitrite Neg (Negative) 03/09/21 12:24 Urine Bilirubin Neg (Negative) 03/09/21 12:24 Urine Urobilinogen < 2.0 mg/dL (<2.0) 03/09/21 12:24 Ur Leukocyte Esterase Neg (Negative) 03/09/21 12:24 Urine WBC (Auto) 1.0 /HPF (0.0-6.0) 03/09/21 12:24 Urine RBC (Auto) 6.0 /HPF (0.0-6.0) 03/09/21 12:24 Urine Mucus Few /HPF 03/09/21 12:24 Coronavirus (PCR) Negative (Negative) 03/09/21 08:44 Microbiology: Microbiology 03/09/21 09:42 Peripheral/Venous Blood Culture - Preliminary NO GROWTH AFTER 48 HOURS 03/09/21 09:42 Peripheral/Venous Blood Culture - Preliminary NO GROWTH AFTER 48 HOURS Moss/IV: Voiding Method Toilet Active Medications - Current Medications Current Medications: Generic Name Dose Route Start Last Admin Trade Name Freq PRN Reason Stop Dose Admin Acetaminophen 650 mg 03/09/21 21:44 03/11/21 05:45 Acetaminophen 325 Mg Tab PO 650 mg Q6H PRN Administration Pain, Mild (1-3), Fever > 101 Atovaquone/Proguanil 4 each 03/11/21 15:00 03/11/21 16:10 Atovaquone/Proguanil Tab PO 03/13/21 10:01 4 each DAILY LIZANDRO Administration Potassium Chloride/Dextrose/Sod Cl 10 meq in 1,000 mls @ 100 mls/hr 03/10/21 19:00 03/11/21 21:46 D5w/0.45% Nacl/Kcl 10 Meq IV 100 mls/hr DIRECT LIZANDRO Administration Ondansetron HCl 4 mg 03/09/21 21:45 03/11/21 05:45 Ondansetron 4 Mg Odt Tab PO 4 mg Q8H PRN Administration Nausea And Vomiting
[2021-03-12 06:29] LABS: Hematocrit 38.6 % (35.5-45.6); Hemoglobin 12.3 gm/dl (11.8-15.2); Mean Corpuscular HGB Conc 32 % (32-34); Mean Corpuscular Volume 79 fl (84-94); Red Blood Count 4.88 M/mm3 (3.65-5.03); Red Cell Distribution Width 16.1 % (13.2-15.2)
[2021-03-12 06:33] LABS: Platelet Count 82 K/mm3 (140-440)
[2021-03-12 07:50] LABS: Alanine Aminotransferase 18 units/L (7-56); Albumin 3.8 g/dL (3.9-5); BUN/Creatinine Ratio 20; Blood Urea Nitrogen 18 mg/dL (9-20); Calcium 8.5 mg/dL (8.4-10.2); Hemolysis Index 4
[2021-03-12] MEDS: ATOVAQUONE/PROGUANIL TAB PO SCH (09:34)
[2021-03-12 12:00] LABS: Anisocytosis Few; Band Neutrophils # (Manual) 0.1 K/mm3; Hypochromasia Few; Platelet Estimate Consistent w Auto; Target Cells Rare; Total Cells Counted 100
--- NOTE | 2021-03-12 14:58 | Progress Note ---
Assessment and Plan Cultures: Blood culture no growth so far Malaria: positive A/P: 61 yo M no known PMHx presented to hospital with sepsis secondary to malar ia #Acute sepsis: with fevers and leukocytosis. Secondary to malaria #Malaria: discussed with lab, testing positive. Will be sent out for speciation and quantification. Recs: -Start malarone, plan 3 days (D2 of 3) -Follow up finalization of malaria testing; speciation and quantification Discussed with Dr. mays. Best to keep in house to compelte D3 of Malarone as outpatient supply might by ify. Thank you for the consult, we will continue to follow. Dilia Humphries MD [facility] ([facility]) O: [phone] F: [phone] Subjective Date of service: 03/12/21 Interval history: Afebrile now, white count normal 4.1. Objective - Exam Narrative Exam: Physical Exam: Constitutional: Alert, cooperative. No acute distress Head, Ears, Nose: Normocephalic, atraumatic. External ears, nose normal Eyes: Conjunctivae/corneas clear. No icterus. No ptosis. Neck: Supple, no meningeal signs Oral: dentition fair, no thrush Cardiovascular: S1, S2 normal. Respiratory: Good air entry, clear to auscultation bilaterally GI: Soft, non-tender; bowel sounds normal. No peritoneal signs. Musculoskeletal: No pedal edema, no cyanosis. Skin: No rash or abscess Hem/Lymphatic: No palpable cervical or supraclavicular nodes. No lymphangitis Psych: Mood ok. Affect normal Neurological: Awake, alert, oriented. No gross abnormality - Constitutional Vitals: Vital Signs Temp Pulse Resp BP Pulse Ox 98.3 F 76 20 140/82 97 03/12/21 11:34 03/12/21 11:34 03/12/21 11:34 03/12/21 11:34 03/12/21 11:34 Temperature -Last 24 Hours Temperature 98.3 F Temperature 98.3 F Temperature 97.9 F Temperature 98.9 F Temperature 97.7 F Temperature 98.2 F - Labs CBC & Chem 7: 03/12/21 04:32 03/12/21 04:32 Labs: Abnormal lab results 03/12/21 03/12/21 Range/Units 04:32 04:32 WBC 4.1 L (4.5-11.0) K/mm3 MCV 79 L (84-94) fl MCH 25 L (28-32) pg RDW 16.1 H (13.2-15.2) % Plt Count 82 L (140-440) K/mm3 Seg Neuts % (Manual) 71.0 H (40.0-70.0) % Lymphocytes % (Manual) 9.0 L (13.4-35.0) % Monocytes % (Manual) 17.0 H (0.0-7.3) % Lymphocytes # (Manual) 0.4 L (1.2-5.4) K/mm3 Sodium 136 L (137-145) mmol/L Glucose 142 H (75-100) mg/dL Total Bilirubin 1.30 H (0.1-1.2) mg/dL Albumin 3.8 L (3.9-5) g/dL
--- NOTE | 2021-03-12 16:17 | Progress Note ---
Assessment and Plan Acute febrile illness with malaise and anorexia since 2 days, T-max 103.1 at the time of admission returning after a 2-week trip to [facility] consider viral, malaria and other etiologies prevalent in [place]. received COVID-19 vaccine x2 doses about a month ago PCR test negative for COVID-19 in ED WBC 6.2 and platelets 192, UA unremarkable D-dimer 850 high, CTA negative for PE and pneumonia. Procalcitonin 2.9, LDH 229, CRP 9.3 chemistry and LFTs unremarkable no respiratory distress, remains on room air ABG 7.43, 37, 74, on room air Incidental small adrenal nodules Abnormal T wave wave changes on EKG, no chest pain, troponin normal Denies past medical history, generally healthy but does not see doctors Plan: Peripheral blood smear positive for malaria parasite and started on medical therapy today by ID. Further identification of malaria parasite is awaited. Platelet count dropped to 70 today without evidence of bleeding or ecchymosis. DVT prophylaxis: SCDs since platelet count dropping Discussed with the patient and nursing staff Subjective Date of service: 03/12/21 Objective - Constitutional Vitals: Vital Signs - 12hr 03/12/21 03/12/21 03/12/21 04:31 08:47 10:00 Temperature 97.9 F 98.3 F Pulse Rate 70 Respiratory 20 20 Rate Blood Pressure 135/80 O2 Sat by Pulse 97 97 Oximetry 03/12/21 11:34 Temperature 98.3 F Pulse Rate 76 Respiratory 20 Rate Blood Pressure 140/82 O2 Sat by Pulse 97 Oximetry - Labs CBC & Chem 7: 03/12/21 04:32 03/12/21 04:32 Labs: Abnormal lab results 03/12/21 03/12/21 Range/Units 04:32 04:32 WBC 4.1 L (4.5-11.0) K/mm3 MCV 79 L (84-94) fl MCH 25 L (28-32) pg RDW 16.1 H (13.2-15.2) % Plt Count 82 L (140-440) K/mm3 Seg Neuts % (Manual) 71.0 H (40.0-70.0) % Lymphocytes % (Manual) 9.0 L (13.4-35.0) % Monocytes % (Manual) 17.0 H (0.0-7.3) % Lymphocytes # (Manual) 0.4 L (1.2-5.4) K/mm3 Sodium 136 L (137-145) mmol/L Glucose 142 H (75-100) mg/dL Total Bilirubin 1.30 H (0.1-1.2) mg/dL Albumin 3.8 L (3.9-5) g/dL HEART Score - HEART Score Troponin: Troponin T < 0.010 ng/mL (0.00-0.029) 03/10/21 05:15
[2021-03-12] MEDS: D5W/0.45% NACL/KCL 10 MEQ 10 MEQ/1,000 ML BAG IV SCH (17:19)
[2021-03-13] MEDS: D5W/0.45% NACL/KCL 10 MEQ 10 MEQ/1,000 ML BAG IV SCH (03:25)
[2021-03-13 05:06] LABS: Hematocrit 36.1 % (35.5-45.6); Hemoglobin 11.5 gm/dl (11.8-15.2); Mean Corpuscular HGB Conc 32 % (32-34); Mean Corpuscular Volume 79 fl (84-94); Red Blood Count 4.58 M/mm3 (3.65-5.03); Red Cell Distribution Width 16.2 % (13.2-15.2)
[2021-03-13 05:10] LABS: Platelet Count 77 K/mm3 (140-440)
[2021-03-13 05:16] LABS: Alanine Aminotransferase 18 units/L (7-56); Albumin 3.5 g/dL (3.9-5); BUN/Creatinine Ratio 14; Blood Urea Nitrogen 11 mg/dL (9-20); Calcium 8.3 mg/dL (8.4-10.2); Hemolysis Index 7
[2021-03-13 08:21] LABS: Total Cells Counted 100
[2021-03-13 08:22] LABS: Anisocytosis Few; Hypochromasia 1+
[2021-03-13 08:23] LABS: Platelet Estimate Consistent w Auto
[2021-03-13 09:53] VITALS: BP 114/75
--- NOTE | 2021-03-13 11:08 | Discharge Summary ---
Providers - Providers Date of Admission: 03/09/21 08:44 Date of discharge: 03/13/21 Attending physician: ANGELIA CRABTREE 03/09/21 09:35 Consult to Physician [CONS] Urgent Comment: Consulting Provider: EBENEZER PERKINS Physician Instructions: Reason For Exam: Fever 103, sudden dyspnea, from [place] 03/09/21 13:33 Consult to Physician [CONS] Routine Comment: Consulting Provider: ANDI TITUS Physician Instructions: Reason For Exam: Fever, dyspnea, travel to [place] Primary care physician: [facility] Hospitalization Condition: Stable Disposition: 01 HOME / SELF CARE / HOMELESS Final Discharge Diagnosis (Prints w/discharge instructions): #Acute sepsis: with fevers and leukocytosis. #Malaria Time spent for discharge: 34 minutes Core Measure Documentation - Palliative Care Palliative Care/ Comfort Measures: Not Applicable - Core Measures Any of the following diagnoses?: none Exam - Constitutional Vitals: Temp Pulse Resp BP Pulse Ox 98.0 F 82 22 114/75 97 03/13/21 09:22 03/13/21 09:22 03/13/21 10:00 03/13/21 09:22 03/13/21 10:00 Plan Activity: advance as tolerated Weight Bearing Status: Weight Bear as Tolerated Diet: low fat, low salt Follow up with: AIME RAMOS MD [Primary Care Provider] - 7 Days EBENEZER PERKINS MD [Staff Physician] - 7 Days
[2021-03-13] MEDS: ATOVAQUONE/PROGUANIL TAB PO SCH (11:11)
--- NOTE | 2021-03-13 14:58 | Progress Note ---
Assessment and Plan Cultures: Blood culture no growth so far Malaria: positive A/P: 61 yo M no known PMHx presented to hospital with sepsis secondary to malar ia #Acute sepsis: with fevers and leukocytosis. Secondary to malaria #Malaria: discussed with lab, testing positive. Will be sent out for speciation and quantification. Recs: -Start malarone, plan 3 days (D3 of 3) -Follow up finalization of malaria testing; speciation and quantification Thank you for the consult, we will continue to follow. Dilia Humphries MD [facility] ([facility]) O: [phone] F: [phone] Subjective Date of service: 03/13/21 Interval history: Afebrile, white count slightly low at 4.4. Objective - Exam Narrative Exam: Physical Exam: Constitutional: Alert, cooperative. No acute distress Head, Ears, Nose: Normocephalic, atraumatic. External ears, nose normal Eyes: Conjunctivae/corneas clear. No icterus. No ptosis. Neck: Supple, no meningeal signs Oral: dentition fair, no thrush Cardiovascular: S1, S2 normal. Respiratory: Good air entry, clear to auscultation bilaterally GI: Soft, non-tender; bowel sounds normal. No peritoneal signs. Musculoskeletal: No pedal edema, no cyanosis. Skin: No rash or abscess Hem/Lymphatic: No palpable cervical or supraclavicular nodes. No lymphangitis Psych: Mood ok. Affect normal Neurological: Awake, alert, oriented. No gross abnormality - Constitutional Vitals: Vital Signs Temp Pulse Resp BP Pulse Ox 98.0 F 82 22 114/75 97 03/13/21 09:22 03/13/21 09:22 03/13/21 10:00 03/13/21 09:22 03/13/21 10:00 Temperature -Last 24 Hours Temperature 98.0 F Temperature 98.8 F Temperature 98.3 F Temperature 99.4 F Temperature 97.6 F - Labs CBC & Chem 7: 03/13/21 04:04 03/13/21 04:04 Labs: Abnormal lab results 03/13/21 03/13/21 Range/Units 04:04 04:04 WBC 4.4 L (4.5-11.0) K/mm3 Hgb 11.5 L (11.8-15.2) gm/dl MCV 79 L (84-94) fl MCH 25 L (28-32) pg RDW 16.2 H (13.2-15.2) % Plt Count 77 L (140-440) K/mm3 Seg Neuts % (Manual) 77.0 H (40.0-70.0) % Lymphocytes # (Manual) 0.7 L (1.2-5.4) K/mm3 Carbon Dioxide 21 L (22-30) mmol/L Glucose 103 H (75-100) mg/dL Calcium 8.3 L (8.4-10.2) mg/dL Total Bilirubin 1.40 H (0.1-1.2) mg/dL Albumin 3.5 L (3.9-5) g/dL
== END 2021-03-13 13:40 | disposition home or self-care (01) | DRG 872 ==
LOC: ED 06:14 → OBSVTOIN 08:44 → 3A 08:44 → 4A 18:36
PROVIDERS: ADMIT Internal Medicine; ATTEND Internal Medicine
PROC: 4A033R1 Measurement of Arterial Saturation, Peripheral, Percutaneous Approach (ICD-10-PCS; principal; 2021-03-09)
DX: A41.9 Sepsis, unspecified organism (principal); B54 Unspecified malaria; Z20.822 Contact with and (suspected) exposure to COVID-19; R63.0 Anorexia; Z68.26 Body mass index [BMI] 26.0-26.9, adult
CPT/HCPCS: 36415; 36600; 71275; 80048; 80053; 80076; 81001; 82728; 82803; 83615; 84145; 84484; 85007; 85025; 85027; 85379; 86140; 87040; 87207; 93005; 99285; G0378; J3480; J3490; Q0162; J0360; J7030; Q9967; U0003